=== PATIENT | male | born 1940 | race Caucasian/White ===

== ENCOUNTER → 2024-08-10 10:31 | Outpatient (REF) | payer OTHER, SELFPAY | LOC: RAD 10:31 | PROVIDERS: ATTENDING PHYSICIAN Surgery Vascular Surgery; FAMILY PHYSICIAN Nurse Practitioner Adult Health | DX: I71.40 Abdominal aortic aneurysm, without rupture, unspecified (principal) | CPT/HCPCS: 76770 ==

== ENCOUNTER → 2024-10-20 12:09 | Outpatient (REF) | payer OTHER, SELFPAY ==
[2024-10-20 15:41] LABS: NT-proBNP 2240 pg/ml
== END ==
LOC: HWLAB 12:09
PROVIDERS: ATTENDING PHYSICIAN Nurse Practitioner Adult Health
DX: R09.89 Other specified symptoms and signs involving the circulatory and respiratory systems (principal); R60.0 Localized edema; I25.10 Atherosclerotic heart disease of native coronary artery without angina pectoris
CPT/HCPCS: 36415; 71046; 83880

== ENCOUNTER → 2024-12-07 10:56 | Outpatient (REF) | payer OTHER, SELFPAY | LOC: HWRCS 10:56 | PROVIDERS: ATTENDING PHYSICIAN Nurse Practitioner Adult Health | DX: R60.0 Localized edema (principal); I50.9 Heart failure, unspecified | CPT/HCPCS: 93306 ==